=== PATIENT | female | born 1940 | race Caucasian/White ===

== ENCOUNTER 2022-12-03 10:10 | Emergency (ER) | payer MEDICARE, SELFPAY ==
--- NOTE | ~2022-12-03 | XR_ITS ---
EXAMINATION: XR hip RT min 2V DATE: 12/03/2022 11:11 INDICATION: Right hip pain TECHNIQUE: Anteroposterior and frog-leg lateral views of the right hip were obtained. COMPARISON: None. FINDINGS: Alignment is normal. No fracture or suspected avascular necrosis. Mild osteoarthritis at the right hi p and bilateral sacroiliac joints. Vascular calcifications in the pelvis and proximal right thigh. IMPRESSION: 1. 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 Reviewed, dictated and finalized at location A.
[2022-12-03 10:32] VITALS: BP 134/54; PULSE 77; RESP 18; TEMP 37; O2SAT 97
--- NOTE | 2022-12-03 12:05 | ED.EXTPRO ---
HPI - Extremity Problem General Chief complaint: Extremity Problem,Nontraumatic Stated complaint: pain shooting down right leg Time Seen by Provider: 12/03/22 12:00 Source: patient and RN notes reviewed Mode of arrival: ambulatory Limitations: other (decreased mental capacity ) History of Present Illness HPI Narrative: 82-year-old female presents with concern for right hip pain that radiates down the front of the leg to the ankle. She has a history of several strokes last year causing her to have decreased mental capacity. Her daughter reports before her strokes she was seen by pain management for chronic neck and back pain. She reports she has been using Tylenol for the current pain without relief. Reports in the past she was given pain medicine and had steroid injections for her chronic pain. Reports she has not had that since her stroke. Her daughter reports the patient cries often due to pain MD Complaint: extremity pain Related Data Home Medications Medication Instructions Recorded Confirmed amlodipine 10 mg tablet mg 12/03/22 apixaban 2.5 mg tablet (Eliquis) mg 12/03/22 atorvastatin 40 mg tablet mg 12/03/22 cyanocobalamin (vitamin B-12) mcg 12/03/22 1,000 mcg/mL injection solution insulin aspart U-100 100 unit/mL subcut 12/03/22 (3 mL) subcutaneous pen (Novolog FlexPen U-100 Insulin aspart) insulin glargine 100 unit/mL (3 unit subcut 12/03/22 mL) subcutaneous pen (Basaglar KwikPen U-100 Insulin) memantine 5 mg tablet mg 12/03/22 metoprolol tartrate 25 mg tablet mg 12/03/22 mirtazapine 7.5 mg tablet mg 12/03/22 trazodone 50 mg tablet mg 12/03/22 Allergies Allergy/AdvReac Type Severity Reaction Status Date / Time aspirin Allergy Unknown Nausea Verified 12/03/22 11:04 codeine Allergy Unknown Other Verified 12/03/22 11:04 Review of Systems Review of Systems: CONSTITUTIONAL: Denies malaise, chills, sweats, or fever. SKIN: Denies rash or itching, open skin, laceration, abrasion, redness, warmth, swelling. MUSCULOSKELETAL: Reports right hip pain NEUROLOGIC: Denies numbness, weakness All systems reviewed & are unremarkable except as noted in HPI and below [facility] Family History Family History (Updated 12/20/16 @ 23:56 by DOCTOR UNKNOWN) Father Acute myocardial infarction, Onset Age: 68 Patient's father is Mother Patient's mother is Social History Social History Smoking status: Never smoker Smoking end date: 09/15/79 Alcohol intake: never Comments At time of signature, agree with nursing past medical, surgical, social and family history. There is no relevant family history pertinent to the presenting complaint Exam Narrative: GENERAL: Well-appearing, well-nourished, and in no acute distress. HEAD: Normocephalic, atraumatic. EYES: PERRLA, conjunctivae clear NECK: Supple. CHEST: Speaks in full sentences. No respiratory distress. HEART: Regular rate and rhythm. Normal and equal peripheral pulses. EXTREMITIES: Right hip has grossly normal strength and sensation, grossly normal range of motion. No edema or ecchymosis. 5/5 strength with hip flexion, abduction, adduction. Normal sensation with sensitivity to light touch and pain. No point tenderness. No open wounds, no skin tenting, no devitalized tissue or atrophy, no trophic changes, no obvious deformity, alignment normal, nearby joints and structures intact. Distal pulses palpable and equal bilaterally, skin warm, dry, pink. Capillary refill less than 3 seconds. SKIN: Warm, dry, no rash. NEURO: Alert and oriented x3. PSYCH: Normal mood and affect Course Course Emergency Course: Discussed follow-up with primary care and pain management. patient's daughter reports that she feels like her primary care does not listen to her, referral for a new primary care given. Patient is aware of diagnosis, understands and agrees to treatment plan. Anticipatory guidance given. Patient agrees to f
== END 2022-12-03 12:22 | disposition home or self-care (01) ==
PROVIDERS: Emergency Provider Nurse Practitioner; PCP Internal Medicine
DX: M54.50 Low back pain, unspecified (principal); M25.551 Pain in right hip; Z87.891 Personal history of nicotine dependence; E78.00 Pure hypercholesterolemia, unspecified; I10 Essential (primary) hypertension; E11.9 Type 2 diabetes mellitus without complications; Z86.73 Personal history of transient ischemic attack (TIA), and cerebral infarction without residual deficits
CPT/HCPCS: 73502; 99203; G0463

== ENCOUNTER 2023-04-23 12:12 | Emergency (ER) | payer MEDICARE, SELFPAY ==
[2023-04-23 12:20] VITALS: BP 164/59; PULSE 76; RESP 16; TEMP 36.7; O2SAT 100
[2023-04-23 12:38] VITALS: BP 164/59; PULSE 76; RESP 16; TEMP 36.7; O2SAT 100
--- NOTE | 2023-04-23 12:46 | ED.GENADULT ---
HPI - General Adult General Chief complaint: Extremity Problem,Nontraumatic Stated complaint: Swelling of Legs Time Seen by Provider: 04/23/23 12:47 Mode of arrival: ambulatory Limitations: no limitations History of Present Illness HPI narrative: 82-year-old female presents with concern for bilateral lower leg swelling for 2-3 days. She reports she has had this happen many years ago, but not recently. She denies any shortness of breath she with cough. She denies redness, warmth, tenderness and posterior lower leg. She denies any decreased urine output. MD complaint: Leg edema Related Data Home Medications Medication Instructions Recorded Confirmed amlodipine 10 mg tablet 10 mg PO DAILY 12/03/22 04/23/23 apixaban 2.5 mg tablet (Eliquis) 2.5 mg PO DAILY 12/03/22 04/23/23 atorvastatin 40 mg tablet 40 mg PO DAILY 12/03/22 04/23/23 cyanocobalamin (vitamin B-12) See Rx Instructions .Route .COMPLEX 12/03/22 04/23/23 1,000 mcg/mL injection solution insulin aspart U-100 100 unit/mL See Rx Instructions .Route .COMPLEX 12/03/22 04/23/23 (3 mL) subcutaneous pen (Novolog FlexPen U-100 Insulin aspart) insulin glargine 100 unit/mL (3 See Rx Instructions .Route .COMPLEX 12/03/22 04/23/23 mL) subcutaneous pen (Basaglar KwikPen U-100 Insulin) memantine 5 mg tablet 5 mg PO BID 12/03/22 04/23/23 metoprolol tartrate 25 mg tablet 25 mg PO BID 12/03/22 04/23/23 mirtazapine 7.5 mg tablet 7.5 mg PO DAILY 12/03/22 04/23/23 trazodone 50 mg tablet 50 mg PO DAILY 12/03/22 04/23/23 magnesium oxide 400 mg (241.3 mg 400 mg PO BID 04/23/23 04/23/23 magnesium) tablet Allergies Allergy/AdvReac Type Severity Reaction Status Date / Time aspirin Allergy Unknown Nausea Verified 12/03/22 11:04 codeine Allergy Unknown Other Verified 12/03/22 11:04 Review of Systems Review of Systems: CONSTITUTIONAL: Denies malaise, chills, sweats, or fever. CARDIOVASCULAR: Denies chest pain, palpitations. Reports bilateral lower leg edema RESPIRATORY: Denies cough or dyspnea. GENITOURINARY: Denies decreased urine output SKIN: Denies warmth, redness MUSCULOSKELETAL: Reports bilateral lower leg edema NEUROLOGIC: Denies numbness, weakness, or headache. All systems reviewed & are unremarkable except as noted in HPI and below [facility] Family History Family History (Updated 12/20/16 @ 23:56 by DOCTOR UNKNOWN) Father Acute myocardial infarction, Onset Age: 68 Patient's father is Mother Patient's mother is Social History Social History Smoking status: Never smoker Smoking end date: 09/15/79 Alcohol intake: never Comments At time of signature, agree with nursing past medical, surgical, social and family history. There is no relevant family history pertinent to the presenting complaint Exam Narrative: GENERAL: Well-appearing, well-nourished, and in no acute distress. HEAD: Normocephalic, atraumatic. EYES: PERRLA, sclera clear, and EOMI. No nystagmus. ENT: Nares clear. Mucous membranes moist. NECK: Supple. No lymphadenopathy. No jugular venous distension. Carotids were easily palpable bilaterally. CHEST: No respiratory distress. Clear to auscultation. No bony deformities, no asymmetry. Speaks in full sentences. HEART: Regular rate and rhythm. No murmur heard. Normal peripheral pulses. EXTREMITIES: Grossly normal range of motion. Grossly normal strength and sensation. Bilateral lower leg nonpitting edema in ankles and feet SKIN: Warm, dry, no visible rash. NEURO: Alert and oriented x3. PSYCH: Normal mood and affect Course Course Emergency Course: Edema is bilateral, nonpitting without warmth, redness, tenderness. Lung sounds are clear. Patient was given a prescription for compression stockings and advised to call her primary care doctor for further evaluation. She was given reasons to go the emergency room if symptoms worsen or change Patient is aware of diagnosis, understands a
== END 2023-04-23 13:00 | disposition home or self-care (01) ==
PROVIDERS: Emergency Provider Nurse Practitioner; PCP Internal Medicine
DX: R60.0 Localized edema (principal); Z87.891 Personal history of nicotine dependence; E78.00 Pure hypercholesterolemia, unspecified; I10 Essential (primary) hypertension; E11.9 Type 2 diabetes mellitus without complications; Z79.4 Long term (current) use of insulin; Z86.73 Personal history of transient ischemic attack (TIA), and cerebral infarction without residual deficits
CPT/HCPCS: 99213; G0463